=== PATIENT | male | born 1975 | race Caucasian/White ===

== ENCOUNTER 2019-10-24 13:44 | Outpatient (CLI) | payer OTHER ==
--- NOTE | 2019-10-24 14:27 | SLEEP CARE CONSULTATION ---
Information from patient questionnaire entered by Denia Ji. I have reviewed and concur with the information entered by Denia Ji. This document represents the service I personally performed and the decisions made by me, Monique Parrish MD, [facility]. History of Present Illness Service Date and Time: 10/24/2019 1344 Reason for Visit: New patient, Previously diagnosed sleep apnea, sleep apnea on CPAP therapy Chief Complaint: reports: Other (status check) Duration of Symptoms: n/a Usual bedtime: 11 pm Time it takes to fall asleep: 60 mins Snores at night: Yes (not when i wear my mask) Observed to quit breathing while asleep: No Sleeps alone due to snoring: No Number of times waking at night: 2-3 Reasons for waking at night: reports: Other (anxiety) Toss, Turn, or Twitch while sleeping: Yes Recalls having dreams: Yes (only when i take my amitriptyline) Usually gets out of bed at: 6:15 am Feels refreshed in the morning: No Morning headache: No Sleepy or fatigued during the day: Yes Ever fallen asleep while driving: No Takes day naps: Yes Dreams during day naps: No Prior sleep studies: Yes Year and Where: 2012 Additional HPI information: Mr. Hawkins is here because of [facility]. He was diagnosed near [place], [place] in 2012 and never had any follow up since. He is using a Respironics CPAP set at 7 cmH20. He wears a full face mask. He gets supplies from a [facility] system in [place]. He reports improvement with the treatment. - Parasomnia Symptoms Ever been unable to move upon waking from sleep: No Ever felt weak in the knees when startled or emotional: Yes Bothered by creepy, crawly, restless sensations in legs: No Problems with memory or concentration: Yes CPAP Compliance Data - Data Reviewed with Patient Average duration of nightly device use: 6.25 Compliance rate %: 79.4 (180 days) Current pressure setting (cmH2O): 7 Humidity settin Average residual AHI: 0.5 Average large leak: 3 sec Subjective Initial [place] Sleepiness Scale score: 15 (in 2019) Past Medical History Past Medical History: reports: Anxiety, GERD Social History 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 Patient is and lives in [place]. Have you smoked in the past 12 months: No Cigarettes per day (20/pack): 10 Years of smokin Quit date: 2000 Smoking Pack Years: 2.5 Alcohol use: Yes Alcohol amount and frequency: 2-3 times a year Caffeine use: Yes Caffeine amount and frequency: 1-2 in the morning Family History Family history of sleep disordered breathing: No Allergies and Home Medications Drug allergies reviewed: Yes Home medication list reviewed: Yes Review of Systems Weight gain over past 5 years: 20 Cardiovascular: denies: high blood pressure, palpitations, chest pain, irregular heart rate or pulse, leg or foot swelling, have to sleep sitting up, other Respiratory: denies: shortness of breath, wheeze, sputum production, chronic cough, other Gastrointestinal: reports: heartburn Urinary: reports: frequency Neurological: reports: other (vertigo) Psychiatric: reports: anxiety Ear/Nose/Throat: reports: wisdom teeth removed Endocrine: reports: sluggishness, increased urination Immunologic: reports: allergies to food or environment (lactose) Physical Exam Vital signs obtained and entered by: The exam was deferred in order to comply with the COVID-19 precautions Impression and Plan IMPRESSION: 1. Obstructive Sleep Apnea-Hypopnea Syndrome, mild, according to the patient. The patient has had good treatment compliance. The current pressure setting appears effective and comfortable. The patient experiences improvement on the treatment. Narrow oropharynx and obesity are common predisposing factors for obstructive sleep apnea-hypopnea syndrome. Because the CPAP is now older than the useful life of 5 years, I will order the patient a new one and make it an autoCPAP set between 4 and 7 cmH2O. Plan: 1. Prescription made for an autoCPAP, heated humidifier, and related supplies. 2. The patient will provide us with his sleep study report. If unable to find the report, another in-laboratory polysomnography will have to be performed. 3. Attempt to lose weight. 4. Return for follow up after one month on the new machine.
== END 2019-10-24 13:45 | disposition home or self-care (01) ==
LOC: SC 13:44
PROVIDERS: ATTEND Internal Medicine Pulmonary Disease
DX: G47.33 Obstructive sleep apnea (adult) (pediatric) (principal)
CPT/HCPCS: 99203; 99212